=== PATIENT | male | born 2000 | race Hispanic/Latino ===

== ENCOUNTER 2019-06-15 10:30 | Outpatient (CLI) | payer BC ==
--- NOTE | 2019-06-15 12:23 | RAD ---
LEFT WRIST 3 VIEWS: Date: 06/15/19 HISTORY: Injury, left wrist pain. FINDINGS/IMPRESSION: There is a small, minimally displaced fracture involving the distal aspect of the scaphoid bone. POS: OFF
== END 2019-06-15 10:31 | disposition home or self-care (01) ==
LOC: BICRAD 10:30
PROVIDERS: ATTEND Nurse Practitioner Family
DX: S69.92XA Unspecified injury of left wrist, hand and finger(s), initial encounter (principal); S62.012A Displaced fracture of distal pole of navicular [scaphoid] bone of left wrist, initial encounter for closed fracture